=== PATIENT | female | born 1980 | race Caucasian/White ===

== ENCOUNTER 2017-01-14 20:10 | Outpatient (CLI) | payer OTHER | END 2017-01-14 20:11 | disposition home or self-care (01) | DX: I10 Essential (primary) hypertension (principal); R73.01 Impaired fasting glucose; R20.0 Anesthesia of skin ==

== ENCOUNTER 2017-05-27 08:00 | Outpatient (CLI) | payer OTHER ==
[2017-05-27 18:52] LABS: BILIRUBIN,URINE NEGATIVE (NEGATIVE)
[2017-05-27 19:17] LABS: UR CULTURE IF IND NOT INDICATED
== END 2017-05-27 08:01 | disposition home or self-care (01) ==
LOC: LAB.R 08:00
PROVIDERS: ATTEND Nurse Practitioner Family
DX: N30.00 Acute cystitis without hematuria (principal)
CPT/HCPCS: 81001; 87086

== ENCOUNTER 2017-07-21 12:45 | Outpatient (CLI) | payer OTHER | END 2017-07-21 12:46 | disposition short-term general hospital (02) | LOC: EMS 12:45 | PROVIDERS: ATTEND Surgery | DX: R10.31 Right lower quadrant pain (principal) | CPT/HCPCS: A0425; A0427 ==

== ENCOUNTER 2017-07-28 10:24 | Outpatient (CLI) | payer OTHER ==
[2017-07-28 19:07] LABS: HEMOGLOBIN A1C 0.61 g/dL
== END 2017-07-28 10:25 | disposition home or self-care (01) ==
LOC: LAB.S 10:24
PROVIDERS: ATTEND Nurse Practitioner Family
DX: R73.01 Impaired fasting glucose (principal)
CPT/HCPCS: 36415; 83036

== ENCOUNTER 2018-07-31 10:29 | Outpatient (CLI) | payer OTHER ==
[2018-07-31 18:28] LABS: BASOPHILS % (AUTO) 0.5 %; EOSINOPHILS # (AUTO) 0.1 10^3/uL (0.0-0.7); EOSINOPHILS % (AUTO) 1.9 %; HGB - HEMOGLOBIN 13.4 g/dL (12.0-16.0); LYMPHOCYTES # (AUTO) 2.4 10^3/uL (1.5-3.5); LYMPHOCYTES % (AUTO) 29.8 %; MEAN CORPUSCULAR HEMOGLOBIN 26.4 pg (27.0-31.0); MEAN PLATELET VOLUME 7.6 fL (7.9-10.8); MONOCYTES # (AUTO) 0.5 10^3/uL (0.0-1.0); MONOCYTES % (AUTO) 5.7 %; NEUTROPHILS % (AUTO) 62.1 %; PLT - PLATELET COUNT 257 10^3/uL (130-450); RED CELL DISTRIBUTION WIDTH 15.8 % (12.0-15.0)
[2018-07-31 18:33] LABS: THYROID STIMULATING HORMONE 2.92 uIU/mL (0.34-5.60)
[2018-07-31 18:40] LABS: FERRITIN 64.1 ng/mL (11.0-306.8)
[2018-07-31 20:08] LABS: HB2 TOTAL 14.3 g/dL; HEMOGLOBIN A1C 0.57 g/dL; HEMOGLOBIN A1C % 5.8 % (4.6-6.2)
[2018-07-31 22:18] LABS: ALBUMIN 4.2 g/dL (3.2-5.5); ALBUMIN/GLOBULIN RATIO 1.3 (1.0-2.2); BILIRUBIN,TOTAL 0.7 mg/dL (0.2-1.0); CALCIUM 8.9 mg/dL (8.5-10.3); CREATININE 0.8 mg/dL (0.4-1.0); MAGNESIUM 2.1 mg/dL (1.7-2.8); TOTAL PROTEIN 7.4 g/dL (6.7-8.2)
== END 2018-07-31 10:30 | disposition home or self-care (01) ==
LOC: LAB.F 10:29
PROVIDERS: ATTEND Nurse Practitioner Family
DX: M62.838 Other muscle spasm (principal); R51 Headache; R73.01 Impaired fasting glucose; E28.2 Polycystic ovarian syndrome; Z86.39 Personal history of other endocrine, nutritional and metabolic disease
CPT/HCPCS: 36415; 80053; 82607; 82728; 83036; 83540; 83735; 84443; 84466; 85025

== ENCOUNTER 2018-08-29 08:21 | Outpatient (CLI) | payer OTHER ==
--- NOTE | 2018-08-30 21:55 | Ultrasound Report ---
Reason: ELEVATED LFT'S Procedure Date: 08/29/2018 Accession Number: [id number] / [id number] Procedure: US - Abdomen Limited CPT Code: FULL RESULT: EXAM: ABDOMEN ULTRASOUND LIMITED, RUQ EXAM DATE: 08/29/2018 09:45 AM. CLINICAL HISTORY: ELEVATED LFTS. COMPARISON: ABDOMEN/PELVIS W/O 10/29/2015 8:55 PM. TECHNIQUE: Real-time scanning was performed with static images obtained. FINDINGS: Liver: Enlarged with coarse and hyperechoic parenchyma echotexture. 19.2 cm. Main portal vein flow: Hepatopetal. Gallbladder: The gallbladder is surgically absent. Biliary System: CBD measures 6.6 mm. No intrahepatic or extrahepatic ductal dilatation. Other: The right kidney measures 13.6 cm in length. No hydronephrosis. IMPRESSION: Mild hepatomegaly with hepatic steatosis. RADIA
== END 2018-08-29 08:22 | disposition home or self-care (01) ==
LOC: DI 08:21
PROVIDERS: ATTEND Nurse Practitioner Family
DX: K76.0 Fatty (change of) liver, not elsewhere classified (principal)
CPT/HCPCS: 76705

== ENCOUNTER 2018-09-08 11:41 | Outpatient (CLI) | payer OTHER | END 2018-09-08 11:42 | disposition home or self-care (01) | LOC: LAB.F 11:41 | PROVIDERS: ATTEND Nurse Practitioner Family | DX: R10.9 Unspecified abdominal pain (principal); Z83.79 Family history of other diseases of the digestive system | CPT/HCPCS: 36415; 83516 ==

== ENCOUNTER 2018-12-08 09:59 | Outpatient (CLI) | payer OTHER ==
[2018-12-08 17:58] LABS: BASOPHILS # (AUTO) 0.1 10^3/uL (0.0-0.1); BASOPHILS % (AUTO) 0.7 %; EOSINOPHILS # (AUTO) 0.1 10^3/uL (0.0-0.7); EOSINOPHILS % (AUTO) 1.8 %; HGB - HEMOGLOBIN 13.1 g/dL (12.0-16.0); LYMPHOCYTES # (AUTO) 2.4 10^3/uL (1.5-3.5); LYMPHOCYTES % (AUTO) 31.7 %; MEAN CORPUSCULAR HEMOGLOBIN 26.8 pg (27.0-31.0); MEAN CORPUSCULAR HGB CONC 32.6 g/dL (32.0-36.0); MEAN CORPUSCULAR VOLUME 82.3 fL (81.0-99.0); MEAN PLATELET VOLUME 7.4 fL (7.9-10.8); MONOCYTES # (AUTO) 0.5 10^3/uL (0.0-1.0); MONOCYTES % (AUTO) 6.2 %; NEUTROPHILS # (AUTO) 4.5 10^3/uL (1.5-6.6); NEUTROPHILS % (AUTO) 59.6 %; PLT - PLATELET COUNT 234 10^3/uL (130-450); RED BLOOD COUNT 4.88 10^6/uL (4.20-5.40); RED CELL DISTRIBUTION WIDTH 15.2 % (12.0-15.0); WHITE BLOOD COUNT 7.5 x10^3/uL (4.8-10.8)
[2018-12-08 18:24] LABS: ALBUMIN 3.7 g/dL (3.2-5.5); ALBUMIN/GLOBULIN RATIO 1.2 (1.0-2.2); BILIRUBIN,TOTAL 0.4 mg/dL (0.2-1.0); CALCIUM 8.6 mg/dL (8.5-10.3); CREATININE 0.7 mg/dL (0.4-1.0); TOTAL PROTEIN 6.9 g/dL (6.7-8.2)
== END 2018-12-08 10:00 | disposition home or self-care (01) ==
LOC: LAB.F 09:59
PROVIDERS: ATTEND Nurse Practitioner Family
DX: R10.9 Unspecified abdominal pain (principal)
CPT/HCPCS: 36415; 80053; 85025

== ENCOUNTER 2018-12-16 16:22 | Outpatient (CLI) | payer OTHER ==
--- NOTE | 2018-12-17 10:01 | Ultrasound Report ---
Reason: ABDOMINAL PAIN, ACUTE Procedure Date: 12/16/2018 Accession Number: [id number] / [id number] Procedure: US - Abdomen Limited CPT Code: FULL RESULT: EXAM: ABDOMEN ULTRASOUND LIMITED EXAM DATE: 12/16/2018 05:50 PM. CLINICAL HISTORY: ABdominal pain, acute. COMPARISON: None. TECHNIQUE: Real-time scanning was performed with static images obtained. FINDINGS: No mass identified in an area of concern. No hernia is seen. No adenopathy or collections. IMPRESSION: No sonographically apparent abnormality in the region of clinical concern. If symptoms persist or became painful, recommend contrast-enhanced CT evaluation. Study could be performed with Valsalva as necessary. RADIA
== END 2018-12-16 16:23 | disposition home or self-care (01) ==
LOC: DI 16:22
PROVIDERS: ATTEND Nurse Practitioner Family
DX: R10.32 Left lower quadrant pain (principal)
CPT/HCPCS: 76705

== ENCOUNTER 2019-01-05 17:20 | Outpatient (CLI) | payer OTHER ==
[2019-01-05] MEDS ORDERED: IOPAMIDOL-300 100 ML VIAL ONE (17:46)
[2019-01-05] MEDS ORDERED: IOPAMIDOL-300 100 ML VIAL IVP ONE (18:13)
--- NOTE | 2019-01-06 07:02 | CT Report ---
Reason: FLANK PAIN,LEFT,ABDOMINAL PAIN,ACUTE,POLYCYSTIC OV Procedure Date: 01/05/2019 Accession Number: [id number] / [id number] Procedure: CT - ABDOMEN/PELVIS W/WO CPT Code: FULL RESULT: EXAM: CT ABDOMEN WITHOUT AND WITH CONTRAST EXAM DATE: 01/05/2019 05:52 PM. HISTORY: Left flank and abdominal pain, rule out stone disease. COMPARISON: ABDOMEN/PELVIS W/O 10/29/2015 8:55 PM. TECHNIQUE: Routine helical CT imaging was performed through the abdomen before and after administration of IV contrast: Without and with 100 cc of Isovue-300. Enteric contrast: No. Reconstruction: Coronal and sagittal. In accordance with CT protocol optimization, one or more of the following dose reduction techniques were utilized for this exam: automated exposure control, adjustment of mA and/or KV based on patient size, or use of iterative reconstructive technique. FINDINGS: Lung Bases: Unremarkable. Liver: Liver is enlarged and moderate to severely fatty infiltrated as before. No focal masses. Gallbladder/Bile Ducts: Surgically absent. No biliary ductal dilatation. Spleen: The spleen is prominent measuring up to 14 cm as before. Pancreas: Normal. No masses or ductal obstruction. Adrenal Glands: Normal. Kidneys: Bilateral intrarenal calculi have completely resolved in the interval. The left hydronephrosis and 2 proximal left ureteral stones have also resolved. No perinephric edema or masses. The ureters are within normal limits. Surgical clips noted just medial to the upper pole left kidney new since last exam. Peritoneal Cavity/Bowel: No bowel obstruction or acute inflammatory process evident. No free fluid or adenopathy. A new left lateral abdominal wall hernia is present located between the anterior superior iliac spine and lateral margin of the left rectus muscle. It measures up to approximately 13 x 7.5 x 17 cm and has a broad neck. It contains loops of small bowel and colon. The appendix is well visualized and normal. Vasculature: No aneurysms or other significant abnormality. Bones: No significant abnormality. Other: None. IMPRESSION: 1. Interval resolution of left hydronephrosis and 2 obstructing proximal left ureteral stones. 2. Interval resolution of several small nonobstructive intrarenal stones bilaterally. 3. New large lateral (Spigelian) left abdominal wall hernia measuring up to 17 cm but having a broad neck and causing no obstruction. It contains loops of small bowel and colon. 4. No bowel obstruction or acute inflammatory process. 5. Enlarged and fatty infiltrated liver as before. 6. Mild splenomegaly as before, possibly secondary to body habitus. RADIA
== END 2019-01-05 17:21 | disposition home or self-care (01) ==
LOC: DI 17:20
PROVIDERS: ATTEND Nurse Practitioner
DX: R10.9 Unspecified abdominal pain (principal); E28.2 Polycystic ovarian syndrome; K43.9 Ventral hernia without obstruction or gangrene; K76.0 Fatty (change of) liver, not elsewhere classified; R16.1 Splenomegaly, not elsewhere classified; Z87.442 Personal history of urinary calculi
CPT/HCPCS: 74178; Q9967

== ENCOUNTER 2019-07-22 15:09 | Outpatient (CLI) | payer OTHER | END 2019-07-22 15:10 | disposition critical access hospital (66) | LOC: EMS 15:09 | PROVIDERS: ATTEND Surgery | DX: R42 Dizziness and giddiness (principal); R10.32 Left lower quadrant pain; R11.0 Nausea | CPT/HCPCS: A0425; A0427 ==

== ENCOUNTER 2019-07-22 15:40 | Emergency (ER) | payer OTHER ==
[2019-07-22] MEDS ORDERED: SODIUM CHLORIDE 0.9% 1,000 ML IV ONE (15:46)
[2019-07-22] MEDS ORDERED: ONDANSETRON 4 MG/2 ML VIAL IVP STA (15:46)
--- NOTE | 2019-07-22 15:48 | ED Physician Documentation ---
History of Present Illness - Stated complaint Stated Complaint: HYPERTENSION - History obtained from History obtained from: Patient - History of Present Illness Timing: Today (38-year-old woman with history of PCOS and kidney stones presents with an episode of dizziness that started while she was at the hospital unit clerk's office for her son this morning. He was having his routine 5-year visits, no shots were involved. She started to feel weak and dizzy and on the way here developed left-sided pelvic pain and nausea. There was a report that she was quite hypertensive prior to arrival, however the values obtained by the paramedics were not high like they were at the doctor's office. At the doctor's office they were closer to 200/100, but on the way here and her blood pressures were pretty normal.) Review of Systems Constitutional: denies: Fever, Chills GI: reports: Abdominal Pain, Nausea, Vomiting. 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: Other : Kidney stones HEENT: None Psych: None Musculoskeletal: None Derm: Eczema, Rosacea - Past Surgical History Past Surgical History: Yes General: Cholecystectomy /BODY DESIGN CHECKER: section HEENT: Tonsil/Adenoidectomy - Present Medications Home Medications: Ambulatory Orders Medication Instructions Recorded Confirmed Amitriptyline [Elavil] 1 tab PO QPM 10/29/15 11/06/15 Norgestimate-Ethinyl Estradiol 1 tab PO DAILY 10/29/15 11/06/15 [Ortho Tri-Cyclen 28 Tablet] Promethazine [Phenergan] 1 tab PO Q4HR PRN 10/29/15 11/06/15 Ciprofloxacin HCl [Cipro] 500 mg PO BID 11/02/15 11/06/15 Tamsulosin [Flomax] 0.4 mg PO DAILY 11/02/15 11/06/15 oxyCODONE/ACET 5/325 [Percocet 5 1 tab PO Q4HR PRN 11/02/15 11/06/15 mg/325 mg] - Allergies Allergies/Adverse Reactions: Allergies Allergy/AdvReac Type Severity Reaction Status Date / Time Penicillins Allergy Rash Verified 07/22/19 15:48 silver * Allergy Edema Verified 07/22/19 15:48 [From Tegaderm AG Mesh] Adhesives from tape AdvReac Itching Uncoded 10/29/15 18:45 - Social History Does the pt smoke?: No Smoking Status: Former smoker Does the pt drink ETOH?: Yes Does the pt have substance abuse?: No - Immunizations Immunizations are current?: Yes - POLST Patient has POLST: No PD ED PE NORMAL - Vitals Vital signs reviewed: Yes - General General: Alert and oriented X 3, Other (She appears uncomfortable) - HEENT HEENT: PERRL, EOMI - Neck Neck: Supple, no meningeal sign, No bony TTP - Cardiac Cardiac: RRR, No murmur - Respiratory Respiratory: No respiratory distress, Clear bilaterally - Abdomen Abdomen: Soft, Non tender - Back Back: No CVA TTP, No spinal TTP - Derm Derm: Normal color, Warm and dry, No rash - Extremities Extremities: No edema, No calf tenderness / cord - Neuro Neuro: Alert and oriented X 3, Normal speech Results - Vitals Vitals: Vital Signs - 24 hr 07/22/19 07/22/19 15:44 18:11 Temperature 36.6 C Heart Rate 83 92 Respiratory 16 16 Rate Blood Pressure 147/94 H 122/77 O2 Saturation 98 96 Oxygen O2 Source Room air - Labs Labs: Laboratory Tests 07/22/19 07/22/19 07/22/19 16:00 16:00 16:15 WBC 8.9 RBC 5.01 Hgb 13.5 Hct 41.0 MCV 81.8 MCH 26.9 L MCHC 32.9 RDW 14.4 Plt Count 260 MPV 8.7 Neut # (Auto) 5.6 Lymph # (Auto) 2.7 Tripp # (Auto) 0.5 Eos # (Auto) 0.1 Baso # (Auto) 0.0 Absolute Nucleated RBC 0.00 Nucleated RBC % 0.0 Sodium 137 Potassium 3.6 Chloride 103 Carbon Dioxide 26 Anion Gap 8.0 BUN 14 Creatinine 0.7 Estimated GFR (MDRD) 93 Glucose 130 H Calcium 9.2 Total Bilirubin 0.3 AST 38 ALT 39 Alkaline Phosphatase 66 Total Protein 7.6 Albumin 4.2 Globulin 3.4 Albumin/Globulin Ratio 1.2 Lipase 40 Urine Color YELLOW Urine Clarity CLEAR Urine pH 7.5 Ur Specific [place] 1.015 Urine Protein NEGATIVE Urine Glucose (UA) NEGATIVE Urine Ketones NEGATIVE Urine Occult Blood NEGATIVE Urine Nitrite NEGATIVE Urine Bilirubin NEGATIVE Urine Urobilinogen 0.2 (NORMAL) Ur Leukocyte Esterase NEGATIVE Ur Microscopic Review NOT INDICATED Urine Culture Comments NOT INDICATED Urine HCG, Qual NEGATIVE - Rads (name of study) pelvic sono Radiology: EMP read contemporaneously (Grossly negative) PD MEDICAL DECISION MAKING - ED course ED course: 38-year-old woman has been nauseous for several days and today developed dizziness while at the doctor's office with her son. She was reportedly hypertensive there but I wonder if these values were spurious as they were not corroborated by paramedics. She has left pelvic pain now which could be a kidney stone or an ovarian cyst, she has history of both. No specific findings on diagnostics and she felt better without specific intervention. Departure - Departure Disposition: 01 Home, Self Care Clinical Impression: Dizziness, Pelvic pain Condition: Good Record reviewed to determine appropriate education?: Yes Instructions: ED Dizziness Syncope Fainting W Pre, ED Abdominal Pain Unkn Cause Comments: Drink plenty fluids, return for new or recurrent symptoms or if worse again.
[2019-07-22 16:08] LABS: BASOPHILS % (AUTO) 0.3 %; EOSINOPHILS # (AUTO) 0.1 10^3/uL (0.0-0.7); EOSINOPHILS % (AUTO) 1.6 %; HGB - HEMOGLOBIN 13.5 g/dL (12.0-16.0); LYMPHOCYTES # (AUTO) 2.7 10^3/uL (1.5-3.5); LYMPHOCYTES % (AUTO) 29.7 %; MEAN CORPUSCULAR HEMOGLOBIN 26.9 pg (27.0-31.0); MEAN CORPUSCULAR HGB CONC 32.9 g/dL (32.0-36.0); MEAN CORPUSCULAR VOLUME 81.8 fL (81.0-99.0); MEAN PLATELET VOLUME 8.7 fL (7.9-10.8); MONOCYTES # (AUTO) 0.5 10^3/uL (0.0-1.0); MONOCYTES % (AUTO) 5.5 %; NEUTROPHILS # (AUTO) 5.6 10^3/uL (1.5-6.6); NEUTROPHILS % (AUTO) 62.5 %; PLT - PLATELET COUNT 260 10^3/uL (130-450); RED BLOOD COUNT 5.01 10^6/uL (4.20-5.40); RED CELL DISTRIBUTION WIDTH 14.4 % (12.0-15.0); WHITE BLOOD COUNT 8.9 x10^3/uL (4.8-10.8)
[2019-07-22 16:18] LABS: ALBUMIN 4.2 g/dL (3.2-5.5); ALBUMIN/GLOBULIN RATIO 1.2 (1.0-2.2); BILIRUBIN,TOTAL 0.3 mg/dL (0.2-1.0); CALCIUM 9.2 mg/dL (8.5-10.3); CREATININE 0.7 mg/dL (0.4-1.0); TOTAL PROTEIN 7.6 g/dL (6.7-8.2)
[2019-07-22 16:22] LABS: BILIRUBIN,URINE NEGATIVE (NEGATIVE); GLUCOSE, URINE (UA) NEGATIVE (NEGATIVE); KETONES,URINE (UA) NEGATIVE (NEGATIVE); LEUKOCYTE ESTERASE, URINE NEGATIVE (NEGATIVE); NITRITE,URINE NEGATIVE (NEGATIVE); OCCULT BLOOD,URINE NEGATIVE (NEGATIVE); PH,URINE 7.5 PH (5.0-7.5); PROTEIN,URINE NEGATIVE (NEGATIVE); UROBILINOGEN,URINE 0.2 (NORMAL) E.U./dL (NORMAL)
[2019-07-22 16:24] LABS: CLARITY,URINE CLEAR (CLEAR)
[2019-07-22 16:25] LABS: HCG UR QUAL NEGATIVE
--- NOTE | 2019-07-22 18:28 | Ultrasound Report ---
Reason: pelvic pain, L Procedure Date: 07/22/2019 Accession Number: [id number] / [id number] Procedure: US - Pelvic w/Transvag+Doppler Comp CPT Code: FULL RESULT: EXAM: PELVIC ULTRASOUND EXAM DATE: 07/22/2019 05:54 PM. CLINICAL HISTORY: Pelvic pain, L. COMPARISON: None. TECHNIQUE: Realtime transabdominal pelvic scan performed to identify the uterus and adnexa and as an overview of other pelvic structures, followed by transvaginal scan to provide greater detail of the uterus and adnexa, with static image documentation. FINDINGS: Uterus: 7.1 x 4 x 5.1 cm, volume 75.4 cc. Anteverted position. Normal overall size and echotexture. Masses: None. Endometrium: 3 mm. Normal. Cervix: Unremarkable. Right Ovary: 3.1 x 3.8 x 3.2 cm, volume 19.7 cc. Normal echotexture and blood flow. Left Ovary: 2.8 x 2.8 x 2.7 cm, volume 10.8 cc. Normal echotexture and blood flow. Suboptimal visualization of both ovaries due to patient's body habitus. Ovaries only visualized transabdominally. Free Fluid: None. Other: None. IMPRESSION: No significant abnormality. RADIA
[2019-07-22 19:04] VITALS: BP 120/77
== END 2019-07-22 19:04 | disposition home or self-care (01) ==
LOC: EDUNIT# → ED 15:40
DX: R42 Dizziness and giddiness (principal); R10.2 Pelvic and perineal pain; R11.2 Nausea with vomiting, unspecified; E28.2 Polycystic ovarian syndrome; Z87.442 Personal history of urinary calculi; Z87.891 Personal history of nicotine dependence
CPT/HCPCS: 36415; 76830; 76856; 80053; 81001; 81003; 81025; 83690; 85025; 87086; 93975; 96361; 96374; 99284

== ENCOUNTER 2019-08-25 09:00 | Outpatient (CLI) | payer OTHER | END 2019-08-25 23:59 | disposition home or self-care (01) | LOC: LAB.R 09:00 | PROVIDERS: ATTEND Family Medicine | DX: N39.0 Urinary tract infection, site not specified (principal) | CPT/HCPCS: 87086 ==

== ENCOUNTER 2019-11-09 09:09 | Outpatient (CLI) | payer OTHER ==
--- NOTE | 2019-11-09 12:52 | Mammography Report ---
Reason: SCREENING MAMMO Procedure Date: 11/09/2019 Accession Number: [id number] / [id number] Procedure: MGS - Screening Mammo Dig Bilat CPT Code: Final Report FULL RESULT: EXAM: Screening Mammo Dig Bilat DATE: 11/09/2019 9:37 AM CLINICAL HISTORY: Routine screening TECHNIQUE: (B) - Bilateral CC and MLO views were obtained. COMPARISON: None PARENCHYMAL PATTERN: (F) - The breasts demonstrate diffuse fatty replacement bilaterally. FINDINGS: In the right breast 4:00 position 8 to 9 cm from the nipple is an ovoid well-circumscribed nodule, possibly an intramammary lymph node. Suggest confirmation by ultrasound. Otherwise there are no suspicious masses, calcifications, or areas of distortion. IMPRESSION: Incomplete examination. BI-RADS category 0. Needs additional evaluation right breast by ultrasound. Negative left breast. RECOMMENDATION: (ADDUS) - Targeted ultrasound recommended. Right breast BI-RADS CATEGORY: (0) - Incomplete Examination - need additional evaluation. STANDARD QUALIFYING STATEMENTS: 1. This examination was not reviewed with the aid of Computer-Aided Detection (CAD). 2. A negative or benign imaging report should not preclude biopsy if clinically suspicious findings are present. 3. Dense breasts may obscure an underlying neoplasm. 4. This examination was reviewed without the aid of 3D breast imaging (tomosynthesis).
== END 2019-11-09 09:10 | disposition home or self-care (01) ==
LOC: DI.S 09:09
PROVIDERS: ATTEND Physician Assistant Medical
DX: Z12.31 Encounter for screening mammogram for malignant neoplasm of breast (principal); R92.8 Other abnormal and inconclusive findings on diagnostic imaging of breast
CPT/HCPCS: 77067

== ENCOUNTER 2019-11-29 11:28 | Outpatient (CLI) | payer OTHER ==
--- NOTE | 2019-11-29 13:04 | XRAY Report ---
Reason: KNEE JOINT PAIN, RIGHT "URGENT" Procedure Date: 11/29/2019 Accession Number: [id number] / [id number] Procedure: XRS - Knee 3 View RT CPT Code: Final Report FULL RESULT: EXAM: RIGHT KNEE RADIOGRAPHY EXAM DATE: 11/29/2019 11:43 AM. CLINICAL HISTORY: Knee joint pain, right urgent. COMPARISON: None. TECHNIQUE: 3 views. FINDINGS: Bones: No fracture or bone lesion is detected. No significant osteophytic spurring. Joints: Moderate narrowing of the medial compartment of the knee. No chondrocalcinosis. Small suprapatellar joint effusion. Soft Tissues: Normal. No soft tissue swelling. IMPRESSION: Moderate degenerative narrowing of the medial compartment of the right knee. RADIA
== END 2019-11-29 11:29 | disposition home or self-care (01) ==
LOC: DI.S 11:28
PROVIDERS: ATTEND Physician Assistant Medical
DX: M17.11 Unilateral primary osteoarthritis, right knee (principal)

== ENCOUNTER 2019-12-09 08:43 | Outpatient (CLI) | payer OTHER ==
--- NOTE | 2019-12-09 10:26 | Ultrasound Report ---
Reason: ABN MAMMO-RT SPEC VIEWS Procedure Date: 12/09/2019 Accession Number: [id number] / [id number] Procedure: US - Breast Unilateral Limited CPT Code: Final Report FULL RESULT: EXAM: Diagnostic Dig RT, Breast Unilateral Limited DATE: 12/09/2019 10:03 AM CLINICAL HISTORY: Diagnostic examination. History of late childbearing. The patient is recalled from baseline screening mammogram for a isodense right breast nodule. TECHNIQUE: (R) - Right CC and ML images are obtained. Focused right breast ultrasound is performed. COMPARISON: 11/09/2019. PARENCHYMAL PATTERN: (F) - The breast(s) demonstrate(s) diffuse fatty replacement. FINDINGS: The 8:00 apparent nodule approximately 9.5 cm from the nipple is tomographically characterized as a focal asymmetry without architectural distortion or calcifications. Focused right breast ultrasound reveals no abnormal masses or architectural distortion. The area in question is identified and sonographically appears a wider than tall with a single apparent feeding vessel near what is felt to represent a hilum and architectural appearance most compatible with a typically benign lymph node. No suspicious sonographic features are seen. There are no suspicious masses, calcifications, or areas of distortion. IMPRESSION: Benign findings. BI-RADS category 2. RECOMMENDATION: (ANNUAL) - Recommend routine annual screening mammography. BI-RADS CATEGORY: (2) - Benign Findings. STANDARD QUALIFYING STATEMENTS: 1. This examination was not reviewed with the aid of Computer-Aided Detection (CAD). 2. A negative or benign imaging report should not preclude biopsy if clinically suspicious findings are present. 3. Dense breasts may obscure an underlying neoplasm. 4. This examination was reviewed with the aid of 3D breast imaging (tomosynthesis).
== END 2019-12-09 08:44 | disposition home or self-care (01) ==
LOC: DI 08:43
PROVIDERS: ATTEND Physician Assistant Medical
DX: R92.8 Other abnormal and inconclusive findings on diagnostic imaging of breast (principal)
CPT/HCPCS: 76642

== ENCOUNTER 2019-12-13 09:35 | Outpatient (CLI) | payer OTHER | END 2019-12-13 23:59 | disposition home or self-care (01) | LOC: LAB.R 09:35 | PROVIDERS: ATTEND Physician Assistant Medical | DX: N39.0 Urinary tract infection, site not specified (principal) | CPT/HCPCS: 87086 ==

== ENCOUNTER 2019-12-14 12:09 | Outpatient (CLI) | payer OTHER | END 2019-12-14 23:59 | disposition home or self-care (01) | LOC: LAB.S 12:09 | PROVIDERS: ATTEND Physician Assistant Medical | DX: Z83.2 Family history of diseases of the blood and blood-forming organs and certain disorders involving the immune mechanism (principal); Z83.79 Family history of other diseases of the digestive system; Z86.39 Personal history of other endocrine, nutritional and metabolic disease | CPT/HCPCS: 36415; 81241; 83516; 84443 ==

== ENCOUNTER 2020-02-22 17:33 | Emergency (ER) | payer OTHER ==
--- NOTE | 2020-02-22 17:59 | ED Physician Documentation ---
PD HPI URI - Stated complaint Stated Complaint: R EAR PAIN - Chief complaint Chief Complaint: Heent - History obtained from History obtained from: Patient - History of Present Illness Timing - onset: Yesterday Timing duration: Days (had had some brief pains of ear over the past month, with feeling of difficulty hearing or being plugged. She says uses qtips just outer part of ear, not into canal. Now with pain, pressure, and drainage from right ear since yesterday.) Timing details: Abrupt onset, Still present Associated symptoms: Ear pain. No: Fever, Nasal congestion, Sore throat, Dry cough Contributing factors: No: Sick contact, Travel, Immunocompromised Similar symptoms before: Has not had sx before Review of Systems Constitutional: denies: Fever, Chills, Myalgias Ears: reports: Loss of hearing, Ear pain, Drainage/discharge. 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 : Kidney stones HEENT: None Psych: None Musculoskeletal: None Derm: Eczema, Rosacea - Past Surgical History Past Surgical History: Yes General: Cholecystectomy /PERIOPERATIVE TECH: section HEENT: Tonsil/Adenoidectomy - Present Medications Home Medications: Ambulatory Orders Medication Instructions Recorded Confirmed Amitriptyline [Elavil] 1 tab PO QPM 10/29/15 11/06/15 Norgestimate-Ethinyl Estradiol 1 tab PO DAILY 10/29/15 11/06/15 [Ortho Tri-Cyclen 28 Tablet] Promethazine [Phenergan] 1 tab PO Q4HR PRN 10/29/15 11/06/15 Ciprofloxacin HCl [Cipro] 500 mg PO BID 11/02/15 11/06/15 Tamsulosin [Flomax] 0.4 mg PO DAILY 11/02/15 11/06/15 oxyCODONE/ACET 5/325 [Percocet 5 1 tab PO Q4HR PRN 11/02/15 11/06/15 mg/325 mg] Naproxen 500 mg PO BID #20 tablet 02/22/20 Neomycin/Polymyx/Hc Otic Drops 4 drops RIGHTEAR 5XD #1 bottle 05/05/20 [Cortisporin Ear Susp] - Allergies Allergies/Adverse Reactions: Allergies Allergy/AdvReac Type Severity Reaction Status Date / Time Penicillins Allergy Rash Verified 02/22/20 17:50 silver * Allergy Edema Verified 02/22/20 17:50 [From Tegaderm AG Mesh] Adhesives from tape AdvReac Itching Uncoded 02/22/20 17:50 - Social History Does the pt smoke?: No Smoking Status: Former smoker Does the pt drink ETOH?: Yes Does the pt have substance abuse?: No - Immunizations Immunizations are current?: Yes - POLST Patient has POLST: No PD ED PE NORMAL - Vitals Vital signs reviewed: Yes - General General: Alert and oriented X 3, Well developed/nourished, Other (appears in pain due to ear) - HEENT HEENT: Moist mucous membranes, Pharynx benign, Other (no tenderness at mastoid area. ). No: Ears normal (left ear and canal normal. Right outer ear with some redness and mild swelling just at outer canal. The canal is swollen but still patent. Some exudate but no noted FB. TM that is visible appears okay. ) - Neck Neck: Supple, no meningeal sign, Other (right preauricular adenopathy. ) - Cardiac Cardiac: RRR, No murmur - Respiratory Respiratory: Clear bilaterally - Derm Derm: Normal color, Warm and dry, No rash Results - Vitals Vitals: Vital Signs - 24 hr 02/22/20 02/22/20 17:50 18:25 Temperature 37.0 C 36.5 C Heart Rate 105 H 109 H Respiratory 16 20 Rate Blood Pressure 103/61 118/68 O2 Saturation 97 96 Oxygen O2 Source Room air PD MEDICAL DECISION MAKING - ED course Complexity details: considered differential (OE with some cellulitis of the ear canal. No FB noted on exam, though canal is tight. ), d/w patient Departure - Departure Disposition: 01 Home, Self Care Clinical Impression: Right ear pain Otitis externa Qualifiers: Otitis externa type: unspecified type Chronicity: acute Laterality: right Qualified Code(s): H60.501 - Unspecified acute noninfective otitis externa, right ear Condition: Stable Record reviewed to determine appropriate education?: Yes Instructions: ED Otitis Externa Follow-Up: Jelly Nix PA-C [Primary Care Provider] - Prescriptions: Naproxen 500 mg PO BID #20 tablet Neomycin/Polymyx/Hc Otic Drops [Cortisporin Ear Susp] 4 drops RIGHTEAR 5XD #1 bottle Comments: Naproxen anti-inflammatory 2-3 times a day for the next several days. Add Tylenol if needed for pains. Cortisporin antibiotic/steroid eardrops for the infection and swelling 5 times a day (every 2-3 hours while awake) for the next several days up to 5 days. Recheck if not improving well into tomorrow and the next day and resolved within 2 to 3 days. Return if worsening. Discharge Date/Time: 02/22/20 18:31
[2020-02-22] MEDS ORDERED: ACETAMINOPHEN 325 MG TABLET PO STA (18:11)
[2020-02-22] MEDS ORDERED: IBUPROFEN 600 MG TABLET PO STA (18:11)
[2020-02-22] MEDS ORDERED: DOXYCYCLINE 100 MG TABLET PO STA (18:11)
[2020-02-22] MEDS ORDERED: NEOMYCIN/POLYMYX/HC OTIC DROPS RIGHTEAR STA (18:11)
[2020-02-22 18:26] VITALS: BP 118/68
== END 2020-02-22 18:31 | disposition home or self-care (01) ==
LOC: ED 17:33
DX: H60.501 Unspecified acute noninfective otitis externa, right ear (principal); Z88.0 Allergy status to penicillin; Z87.891 Personal history of nicotine dependence
CPT/HCPCS: 99282; 99284; A9270

== ENCOUNTER 2020-06-21 08:00 | Outpatient (CLI) | payer OTHER | END 2020-06-21 23:59 | disposition home or self-care (01) | LOC: LAB.R 08:00 | PROVIDERS: ATTEND Family Medicine | DX: N39.0 Urinary tract infection, site not specified (principal) | CPT/HCPCS: 87086 ==

== ENCOUNTER 2020-10-24 15:11 | Outpatient (CLI) | payer BC, OTHER ==
--- NOTE | 2020-10-24 16:49 | XRAY Report ---
PROCEDURE: Lumbar Spine Complete INDICATIONS: BACK PX, LUMBAR W/RADICULOPATHY TECHNIQUE: 5 views of the lumbar spine were acquired. COMPARISON: None. FINDINGS: Bones: 5 [id number]-venwnte vertebrae are present. There is normal bony alignment. No vertebral body compression fractures. No suspicious bony lesions. Soft tissues: Overlying bowel gas pattern is normal. No suspicious soft tissue calcifications. IMPRESSION: 1. No acute abnormality of the lumbar spine. 2. No significant disc disease. Reviewed by: Jorje Daugherty on 10/24/2020 4:48 PM PST Approved by: Jorje Daugherty on 10/24/2020 4:48 PM PST Station ID: [id number]
== END 2020-10-24 15:12 | disposition home or self-care (01) ==
LOC: DI.S 15:11
PROVIDERS: ATTEND Physician Assistant Medical
DX: M54.16 Radiculopathy, lumbar region (principal)

== ENCOUNTER 2020-11-08 07:00 | Outpatient (CLI) | payer BC | END 2020-11-08 23:59 | disposition home or self-care (01) | LOC: LAB.R 07:00 | PROVIDERS: ATTEND Physician Assistant | DX: N39.0 Urinary tract infection, site not specified (principal); R30.0 Dysuria | CPT/HCPCS: 87086; 87181 ==

== ENCOUNTER 2020-12-26 08:46 | Outpatient (CLI) | payer BC, OTHER ==
--- NOTE | 2020-12-27 12:55 | Mammography Report ---
BILATERAL DIGITAL SCREENING MAMMOGRAM 3D/2D: 12/26/2020 CLINICAL: Routine screening. Routine screening. Comparison is made to exams dated: 12/09/2019 mammogram, 12/09/2019 ultrasound, and 11/09/2019 mammogra m - [facility]. There are scattered fibroglandular elements in both breasts. No significant masses, calcifications, or other findings are seen in either breast. There has been no significant interval change. IMPRESSION: NEGATIVE There is no mammographic evidence of malignancy. A 1 year screening mammogram is recommended. This exam was interpreted at Station ID: [id number]. NOTE: For mammograms, a report in lay terms will be sent to the patient. Approximately 15% of breast malignancies will not be visualized mammographically. In the management of a palpable breast mass, a negative mammogram must not discourage biopsy of a clinically suspicious lesion. Electronically Signed By: Darwin Ramos M.D., jr/hanh:12/27/2020 11:30:36 ACR BI-RADS Category 1: Negative 3341F PARENCHYMAL PATTERN: (A) - The breast(s) demonstrate(s) scattered fibroglandular densities. BI-RADS CATEGORY: (1) - 1 RECOMMENDATION: (ANNUAL) - Recommend routine annual screening mammography. [id number] 1 year screening LATERALITY: (B)
== END 2020-12-26 08:47 | disposition home or self-care (01) ==
LOC: DI.S 08:46
DX: Z12.31 Encounter for screening mammogram for malignant neoplasm of breast (principal)

== ENCOUNTER 2021-01-09 08:48 | Outpatient (CLI) | payer BC ==
[2021-01-09 09:18] LABS: BASOPHILS % (AUTO) 0.4 %; EOSINOPHILS # (AUTO) 0.2 10^3/uL (0.0-0.7); EOSINOPHILS % (AUTO) 2.2 %; HCT - HEMATOCRIT 43.2 % (37.0-47.0); HGB - HEMOGLOBIN 14.1 g/dL (12.0-16.0); LYMPHOCYTES # (AUTO) 2.4 10^3/uL (1.5-3.5); LYMPHOCYTES % (AUTO) 35.5 %; MEAN CORPUSCULAR HEMOGLOBIN 26.9 pg (27.0-31.0); MEAN CORPUSCULAR HGB CONC 32.6 g/dL (32.0-36.0); MEAN CORPUSCULAR VOLUME 82.4 fL (81.0-99.0); MEAN PLATELET VOLUME 8.8 fL (7.9-10.8); MONOCYTES # (AUTO) 0.5 10^3/uL (0.0-1.0); MONOCYTES % (AUTO) 6.7 %; NEUTROPHILS # (AUTO) 3.8 10^3/uL (1.5-6.6); NEUTROPHILS % (AUTO) 54.9 %; PLT - PLATELET COUNT 236 10^3/uL (130-450); RED BLOOD COUNT 5.24 10^6/uL (4.20-5.40); RED CELL DISTRIBUTION WIDTH 14.1 % (12.0-15.0); WHITE BLOOD COUNT 6.8 x10^3/uL (4.8-10.8)
[2021-01-09 09:28] LABS: ALBUMIN 3.8 g/dL (3.2-5.5); ALBUMIN/GLOBULIN RATIO 1.2 (1.0-2.2); BILIRUBIN,TOTAL 0.5 mg/dL (0.2-1.0); CALCIUM 9.2 mg/dL (8.5-10.3); CREATININE 0.7 mg/dL (0.4-1.0); POTASSIUM 3.7 mmol/L (3.5-5.0)
== END 2021-01-09 08:49 | disposition home or self-care (01) ==
LOC: LAB 08:48
PROVIDERS: ATTEND Physician Assistant
DX: Z00.00 Encounter for general adult medical examination without abnormal findings (principal); I10 Essential (primary) hypertension; Z86.39 Personal history of other endocrine, nutritional and metabolic disease; E88.81 Metabolic syndrome and other insulin resistance; E66.01 Morbid (severe) obesity due to excess calories; E28.2 Polycystic ovarian syndrome
CPT/HCPCS: 36415; 80053; 85025

== ENCOUNTER 2021-01-10 11:24 | Outpatient (CLI) | payer BC ==
[2021-01-10 12:53] LABS: ESTIMATED AVERAGE GLUCOSE 151 mg/dL (70-100); HEMOGLOBIN A1c% 6.9 % (4.27-6.07)
== END 2021-01-10 23:59 | disposition home or self-care (01) ==
LOC: LAB 11:24
PROVIDERS: ATTEND Physician Assistant
DX: E88.81 Metabolic syndrome and other insulin resistance (principal); E66.01 Morbid (severe) obesity due to excess calories; E28.2 Polycystic ovarian syndrome
CPT/HCPCS: 36415; 83036

== ENCOUNTER 2021-01-12 19:18 | Outpatient (CLI) | payer BC ==
--- NOTE | 2021-01-12 21:33 | Ultrasound Report ---
PROCEDURE: Abdomen Complete INDICATIONS: ABD TNEDERNESS LLQ, DISTENTION, HERNIA TECHNIQUE: Real-time scanning was performed of the abdominal and retroperitoneal organs, with image documentatio n. COMPARISON: None. FINDINGS: Liver: Liver is enlarged with steatosis measuring 23.9 cm. Gallbladder: Surgically absent Biliary ducts: Intrahepatic bile ducts are non-dilated. Extrahepatic bile duct caliber measures 9.6 mm. Normal is 6-7 mm or less in diameter, or 10 mm or less post-cholecystectomy. Pancreas: Not visualized Spleen: Spleen is normal in size and homogeneous in echotexture. Kidneys: Kidneys are normal in size and echotexture. Right kidney measures 13.2 cm long; left kidne y measures 11.9 cm long. No hydronephrosis or nephrolithiasis. No solid masses. Aorta: Visualized aorta is normal in caliber at less than 3 cm. Iliacs: Not well seen. IVC: Intrahepatic inferior vena cava appears dilated throughout its course with focal areas of ectas ia. Secondary to patient body habitus, evaluation is limited. Miscellaneous: No free abdominal fluid. IMPRESSION: 1. Limited exam secondary to patient body habitus. 2. Hepatomegaly with steatosis. 3. Cholecystectomy. 4. Prominent appearance of the IVC with possible areas of ectasia. It is not well visualized secondar y to exam limitations. It is noted that IVC was normal in the 2019 CT exam. However, current finding is not characterized well enough on ultrasound. Further evaluation with CT abdomen pelvis is recommen ded. 5. Mildly prominent common bile duct suspected to be related to postcholecystectomy sequela. Recommen d correlation to laboratory enzyme values. Reviewed by: Lacy Marcelino MD on 01/12/2021 9:31 PM PDT Approved by: Lacy Marcelino MD on 01/12/2021 9:31 PM PDT Station ID: [id number]
== END 2021-01-12 19:19 | disposition home or self-care (01) ==
LOC: DI 19:18
PROVIDERS: ATTEND Physician Assistant
DX: R16.0 Hepatomegaly, not elsewhere classified (principal); K76.0 Fatty (change of) liver, not elsewhere classified; R93.89 Abnormal findings on diagnostic imaging of other specified body structures; Z90.49 Acquired absence of other specified parts of digestive tract

== ENCOUNTER 2021-05-12 09:19 | Outpatient (CLI) | payer BC ==
[2021-05-12 15:30] LABS: CALCIUM 8.3 mg/dL (8.5-10.3); CREATININE 0.6 mg/dL (0.4-1.0)
[2021-05-12 20:34] LABS: ESTIMATED AVERAGE GLUCOSE 163 mg/dL (70-100); HEMOGLOBIN A1c% 7.3 % (4.27-6.07)
== END 2021-05-12 09:20 | disposition home or self-care (01) ==
LOC: LAB.S 09:19
PROVIDERS: ATTEND Physician Assistant
DX: E11.9 Type 2 diabetes mellitus without complications (principal)
CPT/HCPCS: 36415; 80048; 82043; 82570; 83036

== ENCOUNTER 2021-07-25 08:00 | Outpatient (CLI) | payer BC | END 2021-07-25 23:59 | disposition home or self-care (01) | LOC: LAB.S 08:00 | PROVIDERS: ATTEND Physician Assistant Medical | DX: N39.0 Urinary tract infection, site not specified (principal) | CPT/HCPCS: 87086 ==

== ENCOUNTER 2022-11-12 08:46 | Outpatient (CLI) | payer BC ==
[2022-11-12 15:14] LABS: ABSOLUTE RETICS # AUTO 0.105 10^6/uL (0.020-0.110); BASOPHILS % (AUTO) 0.4 %; EOSINOPHILS # (AUTO) 0.2 10^3/uL (0.0-0.7); EOSINOPHILS % (AUTO) 2.5 %; HCT - HEMATOCRIT 43.2 % (37.0-47.0); HGB - HEMOGLOBIN 13.6 g/dL (12.0-16.0); LYMPHOCYTES # (AUTO) 2.9 10^3/uL (1.5-3.5); LYMPHOCYTES % (AUTO) 38.4 %; MEAN CORPUSCULAR HEMOGLOBIN 26.4 pg (27.0-31.0); MEAN CORPUSCULAR HGB CONC 31.5 g/dL (32.0-36.0); MEAN CORPUSCULAR VOLUME 83.9 fL (81.0-99.0); MEAN PLATELET VOLUME 9.6 fL (7.9-10.8); MONOCYTES # (AUTO) 0.5 10^3/uL (0.0-1.0); MONOCYTES % (AUTO) 6.3 %; NEUTROPHILS # (AUTO) 3.9 10^3/uL (1.5-6.6); PLT - PLATELET COUNT 234 10^3/uL (130-450); RED BLOOD COUNT 5.15 10^6/uL (4.20-5.40); RED CELL DISTRIBUTION WIDTH 14.5 % (12.0-15.0); RETICULOCYTE COUNT % (AUTO) 2.03 % (0.5-2.3); WHITE BLOOD COUNT 7.5 x10^3/uL (4.8-10.8)
[2022-11-12 15:36] LABS: % IRON SATURATION 19 % (20-50); ALBUMIN 3.7 g/dL (3.2-5.5); ALBUMIN/GLOBULIN RATIO 1.2 (1.0-2.2); ALKALINE PHOSPHATASE 77 IU/L (42-121); ALT ALANINE AMINOTRANSFERASE 52 IU/L (10-60); AST ASPARTATE AMINOTRANSFERASE 50 IU/L (10-42); BILIRUBIN,TOTAL 0.6 mg/dL (0.2-1.0); BUN - BLOOD UREA NITROGEN 12 mg/dL (6-20); CARBON DIOXIDE - CO2 25 mmol/L (21-32); CHLORIDE 106 mmol/L (101-111); CHOLESTEROL 255 mg/dL; CREATININE 0.6 mg/dL (0.4-1.0); GFR - MDRD 109 (>89); GLUCOSE 189 mg/dL (70-100); HDL CHOLESTEROL 32 mg/dL; IRON 74 ug/dL (28-170); LDL CHOLESTEROL,CALCULATED 176 mg/dL; LDL/HDL RATIO 5.5 (<4.4); SODIUM 141 mmol/L (135-145); TOTAL IRON BINDING CAPACITY 381 ug/dL (250-450); TOTAL PROTEIN 6.9 g/dL (6.7-8.2); TRANSFERRIN 272 mg/dL (192-382); TRIGLYCERIDES 237 mg/dL; VLDL CHOLESTEROL 47 mg/dL
[2022-11-12 15:47] LABS: THYROID STIMULATING HORMONE 6.1 uIU/mL (0.34-5.60)
[2022-11-12 15:56] LABS: FOLATE 15.92 ng/mL (5.90 - >24.8)
[2022-11-12 16:17] LABS: FREE T4 (FREE THYROXINE) 0.64 ng/dL (0.58-1.64)
[2022-11-12 20:32] LABS: ESTIMATED AVERAGE GLUCOSE 194 mg/dL (70-100); HEMOGLOBIN A1c% 8.4 % (4.27-6.07)
[2022-11-13 18:07] LABS: T-TRANSGLUTAMINASE (TTG) IGA <2 U/mL (0-3); T-TRANSGLUTAMINASE (TTG) IGG 6 U/mL (0-5)
== END 2022-11-12 08:47 | disposition home or self-care (01) ==
LOC: LAB.S 08:46
PROVIDERS: ATTEND Registered Nurse
DX: K90.0 Celiac disease (principal); E03.9 Hypothyroidism, unspecified; Z79.899 Other long term (current) drug therapy
CPT/HCPCS: 36415; 80053; 80061; 82607; 82728; 82746; 83036; 83516; 83540; 83721; 84207; 84425; 84439; 84443; 84466; 85025; 85045; 86364

== ENCOUNTER 2023-04-03 08:00 | Outpatient (CLI) | payer BC ==
--- NOTE | 2023-04-03 20:18 | XRAY Report ---
PROCEDURE: Ribs 3 View BILAT INDICATIONS: RIGHT RIB PAIN TECHNIQUE: 6 views of the bilateral ribs were acquired. COMPARISON: None. FINDINGS: Surgical changes and devices: Surgical clips are noted in epigastric region. Bones and chest wall: No fractures or dislocations. No suspicious bony lesions. Overlying soft tis sues appear unremarkable. Lungs and pleura: The visualized lung appears clear. No pleural effusions or pneumothorax are visib le. IMPRESSION: No obvious displaced rib fracture. No suspicious bony lesions. No focal infiltrate, pleural effusion or pneumothorax. Reviewed by: Nolan Mann MD on 04/03/2023 8:17 PM PDT Approved by: Nolan Mann MD on 04/03/2023 8:17 PM PDT Station ID: [id number]
== END 2023-04-03 23:59 | disposition home or self-care (01) ==
LOC: DI.S 08:00
PROVIDERS: ATTEND Emergency Medicine
DX: R07.81 Pleurodynia (principal)

== ENCOUNTER 2023-04-10 08:00 | Outpatient (CLI) | payer BC ==
[2023-04-10 14:47] LABS: CALCIUM 8.5 mg/dL (8.5-10.3); CREATININE 0.7 mg/dL (0.4-1.0); POTASSIUM 4.2 mmol/L (3.5-5.0)
[2023-04-10 15:19] LABS: THYROID STIMULATING HORMONE 5.71 uIU/mL (0.34-5.60)
[2023-04-10 15:54] LABS: FREE T4 (FREE THYROXINE) 0.68 ng/dL (0.58-1.64)
[2023-04-10 22:06] LABS: ESTIMATED AVERAGE GLUCOSE 177 mg/dL (70-100); HEMOGLOBIN A1c% 7.8 % (4.27-6.07)
== END 2023-04-10 23:59 | disposition home or self-care (01) ==
LOC: LAB.S 08:00
PROVIDERS: ATTEND Registered Nurse
DX: E11.9 Type 2 diabetes mellitus without complications (principal); E03.9 Hypothyroidism, unspecified
CPT/HCPCS: 36415; 80048; 82043; 82570; 83036; 84439; 84443

== ENCOUNTER 2023-06-12 09:20 | Outpatient (CLI) | payer BC ==
--- NOTE | 2023-06-13 12:57 | Mammography Report ---
BILATERAL DIGITAL SCREENING MAMMOGRAM 3D/2D: 06/12/2023 CLINICAL: Routine screening. Comparison is made to exams dated: 03/26/2022 mammogram, 12/26/2020 mammogram, and 12/09/2019 mammogram - [facility]. There are scattered areas of fibroglandular density in both breasts (category b / 25%-50% glandular t issue). No significant masses, calcifications, or other findings are seen in either breast. There has been no significant interval change. IMPRESSION: NEGATIVE There is no mammographic evidence of malignancy. A 1 year screening mammogram is recommended. Based on the Tyrer Cuzick model (a risk assessment model) the patients lifetime risk is 8.6% and her 10 year risk is 1.4%. According to the ACR, ACS, and NCCN guidelines, an annual breast MRI exam agnieszka g with mammogram is recommended if the patients lifetime risk is 20% or greater. This exam was interpreted at Station ID: [id number]. NOTE: For mammograms, a report in lay terms will be sent to the patient. Approximately 15% of breast malignancies will not be visualized mammographically. In the management of a palpable breast mass, a negative mammogram must not discourage biopsy of a clinically suspicious lesion. Electronically Signed By: Renard gill/hanh:06/12/2023 11:19:12 letter sent: No_Letter ACR BI-RADS Category 1: Negative 3341F PARENCHYMAL PATTERN: (A) - The breast(s) demonstrate(s) scattered fibroglandular densities. BI-RADS CATEGORY: (1) - 1 Mammogram [id number] 1 year screening LATERALITY: (B)
== END 2023-06-12 09:21 | disposition home or self-care (01) ==
LOC: DI.S 09:20
DX: Z12.31 Encounter for screening mammogram for malignant neoplasm of breast (principal)

== ENCOUNTER 2023-09-26 08:01 | Outpatient (CLI) | payer BC ==
[2023-09-26 15:02] LABS: CALCIUM 9.2 mg/dL (8.5-10.3); CREATININE 0.7 mg/dL (0.6-1.3); POTASSIUM 4.1 mmol/L (3.5-4.5)
[2023-09-26 21:32] LABS: ESTIMATED AVERAGE GLUCOSE 160 mg/dL (70-100); HEMOGLOBIN A1c% 7.2 % (4.27-6.07)
== END 2023-09-26 08:02 | disposition home or self-care (01) ==
LOC: LAB.S 08:01
PROVIDERS: ATTEND Registered Nurse
DX: E11.9 Type 2 diabetes mellitus without complications (principal)
CPT/HCPCS: 36415; 80048; 83036

== ENCOUNTER 2023-12-12 08:12 | Outpatient (CLI) | payer BC ==
[2023-12-12 15:24] LABS: CALCIUM 9.3 mg/dL (8.5-10.3); CREATININE 0.7 mg/dL (0.6-1.3); POTASSIUM 4.3 mmol/L (3.5-4.5)
[2023-12-12 20:16] LABS: ESTIMATED AVERAGE GLUCOSE 151 mg/dL (70-100); HEMOGLOBIN A1c% 6.9 % (4.27-6.07)
== END 2023-12-12 08:13 | disposition home or self-care (01) ==
LOC: LAB.S 08:12
PROVIDERS: ATTEND Registered Nurse
DX: E11.9 Type 2 diabetes mellitus without complications (principal)
CPT/HCPCS: 36415; 80048; 83036

== ENCOUNTER 2024-02-13 08:00 | Outpatient (CLI) | payer BC, OTHER ==
--- NOTE | 2024-02-13 13:37 | XRAY Report ---
PROCEDURE: Shoulder 2+V LT INDICATIONS: LEFT SHOULDER STRAIN TECHNIQUE: 3 views of the shoulder were acquired. COMPARISON: None. FINDINGS: Bones: No fractures or dislocations. No suspicious bony lesions. Visualized ribs appear intact. Soft tissues: No suspicious soft tissue calcifications. The visualized lungs are within normal limi ts. IMPRESSION: No acute bony abnormality. If pain persists with conservative management, consider repeat x-ray in 10 -14 days or cross-sectional imaging. Reviewed by: Mehrdad Estes MD on 02/13/2024 1:36 PM PDT Approved by: Mehrdad Estes MD on 02/13/2024 1:36 PM PDT Station ID: [id number]
== END 2024-02-13 23:59 | disposition home or self-care (01) ==
LOC: DI.S 08:00
PROVIDERS: ATTEND Emergency Medicine
DX: S46.012A Strain of muscle(s) and tendon(s) of the rotator cuff of left shoulder, initial encounter (principal); H60.91 Unspecified otitis externa, right ear
CPT/HCPCS: 87070; 87181; 87205

== ENCOUNTER 2024-07-14 15:08 | Outpatient (CLI) | payer OTHER ==
--- NOTE | 2024-07-14 17:03 | MRI Report ---
PROCEDURE: Shoulder LT WO INDICATIONS: ROTATOR CUFF INJURY TECHNIQUE: Noncontrast oblique coronal T2 fast spin echo with fat saturation, oblique sagittal T1 spin echo and T2 fast spin echo with fat saturation, axial T1 spin echo and T2 fast spin echo with fat saturation t hrough the shoulder. COMPARISON: Shoulder radiograph dated 02/13/2024. FINDINGS: Image quality: Excellent. Rotator cuff: Low-grade articular and bursal surface partial-thickness involving anterior fibers of d istal supraspinatus at its insertion on humeral head is seen extending to musculotendinous junction. Distal infraspinatus and subscapularis tendinosis is seen. No full-thickness rotator cuff tendon rupt ure. No rotator cuff muscle atrophy on sagittal images. Bones and bursae: No bone marrow contusions or fractures. Mild acromioclavicular joint osteoarthriti c changes are seen with joint space narrowing and downward osteophyte formation depressing on musculo tendinous junction of supraspinatus. Type I acromion, without an os acromiale. Small amount of subacr omial subdeltoid bursal fluid is seen, no loose bodies. Capsule and soft tissues: There is fraying of posterior superior glenoid labrum with T2 hyperintense signal concerning for posterior superior labral tear. The long head of the biceps tendon demonstrates normal location and morphology. The rotator interval appears normal, without fibrosis. The coracoh umeral ligament is normal in thickness. IMPRESSION: 1. Low-grade articular and bursal surface partial-thickness tear involving anterior to mid fibers of distal supraspinatus extending to muscular tendinous junction. Distal infraspinatus and subscapularis tendinosis. No full-thickness rotator cuff tendon rupture. 2. Mild acromioclavicular joint osteoarthritis. No fracture or dislocation. Small amount of subacromi al subdeltoid bursal fluid, no loose bodies. 3. Finding is concerning for subtle posterior superior glenoid labral tear. Reviewed by: Nolan Lunsford MD on 07/14/2024 5:01 PM PDT Approved by: Nolan Lunsford MD on 07/14/2024 5:01 PM PDT Station ID: [id number]
== END 2024-07-14 15:09 | disposition home or self-care (01) ==
LOC: DI 15:08
PROVIDERS: ATTEND Registered Nurse
DX: S46.012A Strain of muscle(s) and tendon(s) of the rotator cuff of left shoulder, initial encounter (principal); M19.012 Primary osteoarthritis, left shoulder; M25.412 Effusion, left shoulder